=== PATIENT | female | born 1990 | race Two or more races ===

== ENCOUNTER 2021-07-31 19:03 | Emergency (ER) | payer BC, OTHER ==
[~2021-07-31] VITALS: Ht 162.6 cm; Wt 73.9 kg
[~2021-07-31 19:03] MED LIST: QUET50TA PO; [UNRECOGNIZED DRUG - CODE] PO; [UNRECOGNIZED DRUG - OTHER]; [UNRECOGNIZED DRUG - OTHER]
--- NOTE | 2021-07-31 19:45 | NUR ---
CALLED TO TRIAGE BUT NOT IN WAITING ROOM
--- NOTE | 2021-07-31 20:48 | NUR ---
pt bibself c/o vaginal spotting. pt aaox4 breathing evenly and unlabored. Pt states she is 12 weeks and the spotting started today. Pt did see obgyn today. pt attached to monitor and pox. pt given blanket and call light within reach
--- NOTE | 2021-07-31 21:45 | NUR ---
us tech at bed side
--- NOTE | 2021-07-31 22:00 | NUR ---
refused blood draw. aware
--- NOTE | 2021-07-31 22:22 | NUR ---
PA ON THE PHONE W/ DR BELLE, DIRECT[employer]
[2021-07-31 22:34] LABS: BASOPHILS % (AUTO) 0.4 % (0.0-2.0); EOSINOPHILS % (AUTO) 1.1 % (0.0-6.0); HEMATOCRIT 38 % (33-45); HEMOGLOBIN 12.6 g/dL (11.5-14.8); LYMPHOCYTES # (AUTO) 2.8 K/uL (0.8-4.8); LYMPHOCYTES % (AUTO) 32.3 % (20.0-44.0); MEAN CORPUSCULAR HGB CONC 34 g/dl (31.0-36.0); MEAN CORPUSCULAR VOLUME 90 fL (82-100); MONOCYTES # (AUTO) 0.5 K/uL (0.1-1.30); MONOCYTES % (AUTO) 5.3 % (2.0-12.0); NEUTROPHILS # (AUTO) 5.4 K/uL (1.8-8.9); NEUTROPHILS % (AUTO) 60.9 % (43.0-81.0); PLATELET COUNT (AUTO) 268 K/uL (150-450); WHITE BLOOD COUNT (AUTO) 8.8 K/uL (4.3-11.0)
--- NOTE | 2021-07-31 23:11 | NUR ---
PER LAB, PT IS NOT A CANDIDATE FOR [facility]. LUCRECIA AWARE
--- NOTE | 2021-07-31 23:29 | NUR ---
Patient discharged to home in stable condition. Written and verbal after care instructions given. Patient verbalizes understanding of instruction.
[2021-07-31 23:32] VITALS: BP 110/66
== END 2021-07-31 23:32 | disposition home or self-care (01) ==
LOC: ER 19:09
DX: O36.4XX0 Maternal care for intrauterine death, not applicable or unspecified (principal); Z98.890 Other specified postprocedural states; Z3A.09 9 weeks gestation of pregnancy
CPT/HCPCS: 36415; 76805-TC; 84702-TC; 85025-TC

== ENCOUNTER 2021-08-26 22:14 | Emergency (ER) | payer OTHER ==
[~2021-08-26] VITALS: Ht 160 cm; Wt 54.4 kg
--- NOTE | 2021-08-26 23:03 | NUR ---
BIBS C/O RECTAL BLEEDING X1 WEEK WHEN WIPING. CHANGED INTO A GOWN AND PLACED ON A MONITOR ALL VITALS STABLE. MD WAS AT BEDSIDE FOR EVALUATION.
[2021-08-26] MEDS ORDERED: HYDR30CR79 TP (23:14)
[2021-08-26 23:47] VITALS: BP 126/77
--- NOTE | 2021-08-26 23:47 | NUR ---
Patient discharged to home in stable condition. Written and verbal after care instructions given. Patient verbalizes understanding of instruction.
== END 2021-08-26 23:48 | disposition home or self-care (01) ==
LOC: ER 22:14
DX: K64.8 Other hemorrhoids (principal); M25.552 Pain in left hip; Z79.899 Other long term (current) drug therapy
CPT/HCPCS: 73020

== ENCOUNTER 2022-08-01 12:40 | Emergency (ER) | payer OTHER ==
[~2022-08-01] VITALS: Ht 157.5 cm; Wt 75.3 kg
[~2022-08-01 12:40] MED LIST changes: +HYDR30CR79 TP
[2022-08-01 12:51] VITALS: BP 103/63
--- NOTE | 2022-08-01 13:02 | NUR ---
ASSISTED MD AT BEDSIDE DURING EVAL.
[2022-08-01] MEDS ORDERED: methylPREDNISolone SOD SUCC 125 MG/2ML VIAL ONE (13:08)
[2022-08-01] MEDS ORDERED: FAMOTIDINE/PF INJ 20 MG/2 ML VIAL IV ONE ×2 (13:09→13:30)
[2022-08-01] MEDS ORDERED: diphenhydrAMINE HCL 50 MG/ML VIAL ONE (13:09)
[2022-08-01] MEDS ORDERED: methylPREDNISolone SOD SUCC 125 MG/2ML VIAL IV ONE (13:30)
[2022-08-01] MEDS ORDERED: IV NS 0.9% 1,000 ML BAG IV ONE (13:30)
[2022-08-01] MEDS ORDERED: diphenhydrAMINE HCL 50 MG/ML VIAL IV ONE (13:30)
[2022-08-01] MEDS ORDERED: FAMO-131 PO ×2 (14:16→14:33)
[2022-08-01] MEDS ORDERED: PRED20TA PO ×2 (14:16→14:33)
[2022-08-01] MEDS ORDERED: DIPH25CA83 PO ×2 (14:16→14:33)
--- NOTE | 2022-08-01 16:11 | NUR ---
Patient discharged to home in stable condition. Written and verbal after care instructions given. Patient verbalizes understanding of instruction.IV removed. Catheter intact and site benign. Pressure and 4x4 applied to site. No bleeding noted.
== END 2022-08-01 16:11 | disposition home or self-care (01) ==
LOC: ER 12:40
DX: T78.40XA Allergy, unspecified, initial encounter (principal); Z79.899 Other long term (current) drug therapy; X58.XXXA Exposure to other specified factors, initial encounter
CPT/HCPCS: 99284; 96374; 96375; 96361; J1200; J3490; J2930; J7030

== ENCOUNTER 2022-10-15 14:01 | Emergency (ER) | payer OTHER ==
[~2022-10-15] VITALS: Ht 157.5 cm; Wt 68.0 kg
[~2022-10-15 14:01] MED LIST changes: +DIPH25CA83 PO; +FAMO-131 PO; +PRED20TA PO
--- NOTE | 2022-10-15 14:20 | NUR ---
MARLEE RA FROM URGENT CARE, DEVELOPED GENERALIZED RASH/HIVES AFTER EATING. BEANS YESTERDAY, GIVEN BENADRIL PO IN [facility]RGENT [facility]ARE
[2022-10-15] MEDS ORDERED: IV NS 0.9% 2,000 ML IV ONE (15:00)
[2022-10-15] MEDS ORDERED: FAMOTIDINE/PF INJ 20 MG/2 ML VIAL IV ONE ×2 (15:00→15:25)
[2022-10-15] MEDS ORDERED: ONDANSETRON HCL/PF 4 MG/2 ML VIAL IV ONE (15:00)
[2022-10-15] MEDS ORDERED: ONDANSETRON HCL/PF 4 MG/2 ML VIAL ONE (15:25)
[2022-10-15 15:43] LABS: EOSINOPHILS % (AUTO) 0.1 % (0.0-6.0); HEMATOCRIT 44 % (33-45); HEMOGLOBIN 14.5 g/dL (11.5-14.8); LYMPHOCYTES % (AUTO) 7.3 % (20.0-44.0); MEAN CORPUSCULAR HGB CONC 33 g/dl (31.0-36.0); MEAN CORPUSCULAR VOLUME 88 fL (82-100); MONOCYTES # (AUTO) 0.3 K/uL (0.1-1.30); NEUTROPHILS # (AUTO) 12.9 K/uL (1.8-8.9); NEUTROPHILS % (AUTO) 90.6 % (43.0-81.0); PLATELET COUNT (AUTO) 323 K/uL (150-450); RED BLOOD CELL COUNT(AUTO) 5.01 MIL/uL (4.0-5.2); WHITE BLOOD COUNT (AUTO) 14.2 K/uL (4.3-11.0)
[2022-10-15 16:14] LABS: ALBUMIN 3.5 g/dL (3.4-5.0); BILIRUBIN,DIRECT 0.2 mg/dL (0.0-0.2); BILIRUBIN,TOTAL 0.9 mg/dL (0.2-1.0); CALCIUM, SERUM 8.3 mg/dL (8.5-10.1); CREATININE 0.7 mg/dL (0.6-1.3); POTASSIUM 4.2 mmol/L (3.5-5.1)
[2022-10-15] MEDS ORDERED: PRED50TA PO (17:28)
--- NOTE | 2022-10-15 18:00 | NUR ---
IV removed. Catheter intact and site benign. Pressure and 4x4 applied to site. No bleeding noted.
--- NOTE | 2022-10-15 18:11 | NUR ---
Patient discharged to home in stable condition. Written and verbal after care instructions given. Patient verbalizes understanding of instruction.
[2022-10-15 18:14] VITALS: BP 105/52
== END 2022-10-15 18:14 | disposition home or self-care (01) ==
LOC: ER 14:18
DX: T78.40XA Allergy, unspecified, initial encounter (principal); Z79.899 Other long term (current) drug therapy; X58.XXXA Exposure to other specified factors, initial encounter
CPT/HCPCS: 99284; 96374; 96361 ×2; 96375; 85025; 80048; 80076; 36415; 84702; J3490; J2405; J7030 ×2

== ENCOUNTER 2022-10-16 23:57 | Emergency (ER) | payer OTHER ==
[~2022-10-16] VITALS: Ht 162.6 cm; Wt 68.0 kg
[~2022-10-16 23:57] MED LIST changes: +PRED50TA PO
[2022-10-17] MEDS ORDERED: FAMOTIDINE/PF INJ 20 MG/2 ML VIAL IV ONE (00:08)
[2022-10-17] MEDS ORDERED: methylPREDNISolone SOD SUCC 125 MG/2ML VIAL ONE (00:08)
[2022-10-17] MEDS ORDERED: diphenhydrAMINE HCL 50 MG/ML VIAL ONE (00:08)
--- NOTE | 2022-10-17 00:10 | NUR ---
ROB C/O ALLERGIC REACTION. TOOK BENADRYL [id number] HOTEL BREAKFAST ATTENDANT. - RESPIRATORY DISTRESS. PATIENT IS AAOX4, AMBULATORY, ABLE TO MAKE NEEDS KNOWN. PATIENT IS SLEEPY DUE TO MEDS TAKEN PRIOR TO HOTEL BREAKFAST ATTENDANT. + URTICARIAL RASHES ALL OVER BODY. ATTACHED TO MONITOR. VITALS CHECKED.
[2022-10-17] MEDS ORDERED: ONDANSETRON HCL/PF 4 MG/2 ML VIAL ONE (00:15)
[2022-10-17] MEDS: FAMOTIDINE/PF INJ 20 MG/2 ML VIAL IV ONE (00:18)
[2022-10-17] MEDS: IV NS 0.9% 1,000 ML BAG IV ONE (00:18)
[2022-10-17] MEDS: ONDANSETRON HCL/PF 4 MG/2 ML VIAL IV ONE (00:18)
[2022-10-17] MEDS: diphenhydrAMINE HCL 50 MG/ML VIAL IV ONE (00:18)
[2022-10-17] MEDS: methylPREDNISolone SOD SUCC 125 MG/2ML VIAL IV ONE (00:18)
[2022-10-17] MEDS ORDERED: EPINEPHRINE (1:1000) 1 MG/ML AMPUL ONE (01:44)
[2022-10-17 01:55] VITALS: BP 108/71
[2022-10-17] MEDS: EPINEPHRINE (1:1000) MDV 30 MG/30ML VIAL SUBCUT ONE (01:55)
[2022-10-17] MEDS ORDERED: PRED50TA PO (02:51)
[2022-10-17] MEDS ORDERED: EPIN0.3P3 IM (02:51)
--- NOTE | 2022-10-17 03:36 | NUR ---
IV CANNULA REMOVED. CALLED TO [facility] PT. HE WILL BE HERE IN 15 MINS
--- NOTE | 2022-10-17 03:46 | NUR ---
Patient discharged to home in stable condition. Written and verbal after care instructions given. Patient verbalizes understanding of instruction.
== END 2022-10-17 04:11 | disposition home or self-care (01) ==
LOC: ER 10-17
DX: L50.0 Allergic urticaria (principal); T45.0X5A Adverse effect of antiallergic and antiemetic drugs, initial encounter; Y92.89 Other specified places as the place of occurrence of the external cause
CPT/HCPCS: 99284; 96374; 96375 ×2; 96361; 96372; J1200; J0171 ×2; J3490; J2930; J2405

== ENCOUNTER 2023-02-13 23:40 | Emergency (ER) | payer OTHER ==
[~2023-02-13] VITALS: Ht 157.5 cm; Wt 71.7 kg
[~2023-02-13 23:40] MED LIST changes: +EPIN0.3P3 IM
--- NOTE | 2023-02-14 00:19 | NUR ---
BIBS. MID STERNAL CP "FEELS LIKE SOMETHING GOING UP THE THROAT" STARTED LAST NIGHT @2100. AXO4 AMBULATORY AND VERBAL.
[2023-02-14 00:55] LABS: BASOPHILS % (AUTO) 0.5 % (0.0-2.0); EOSINOPHILS % (AUTO) 1.3 % (0.0-6.0); HEMATOCRIT 35 % (33-45); HEMOGLOBIN 11.7 g/dL (11.5-14.8); LYMPHOCYTES % (AUTO) 35.3 % (20.0-44.0); MEAN CORPUSCULAR HGB CONC 34 g/dl (31.0-36.0); MEAN CORPUSCULAR VOLUME 86 fL (82-100); MONOCYTES # (AUTO) 0.6 K/uL (0.1-1.30); MONOCYTES % (AUTO) 6.6 % (2.0-12.0); NEUTROPHILS # (AUTO) 4.8 K/uL (1.8-8.9); NEUTROPHILS % (AUTO) 56.3 % (43.0-81.0); PLATELET COUNT (AUTO) 258 K/uL (150-450); RED BLOOD CELL COUNT(AUTO) 4.07 MIL/uL (4.0-5.2); WHITE BLOOD COUNT (AUTO) 8.4 K/uL (4.3-11.0)
[2023-02-14 01:08] LABS: D-DIMER 0.19 mg/L(FEU (0.17-0.50)
[2023-02-14 01:13] LABS: ALANINE AMINOTRANSFERASE 17 U/L (12-78); ALBUMIN 3.6 g/dL (3.4-5.0); ALKALINE PHOSPHATASE 66 U/L (46-116); ASPARTATE AMINOTRANSFERASE 10 U/L (15-37); BILIRUBIN,TOTAL 0.2 mg/dL (0.2-1.0); CALCIUM, SERUM 8.9 mg/dL (8.5-10.1); CARBON DIOXIDE 26 mmol/L (21-32); CHLORIDE 109 mmol/L (98-107); CREATININE 0.8 mg/dL (0.6-1.3); GLUCOSE 97 mg/dL (74-106); POTASSIUM 3.5 mmol/L (3.5-5.1); SODIUM SERUM 143 mmol/L (136-145); TOTAL PROTEIN, SERUM 7.1 g/dL (6.4-8.2); UREA NITROGEN, BLOOD 19 mg/dL (7-18)
--- NOTE | 2023-02-14 02:06 | NUR ---
CRIB PAD MAKER AT BEDSIDE FOR REPEAT TROP
--- NOTE | 2023-02-14 03:17 | NUR ---
Patient discharged to home in stable condition. Written and verbal after care instructions given. Patient verbalizes understanding of instruction.
[2023-02-14 03:18] VITALS: BP 109/56
== END 2023-02-14 03:18 | disposition home or self-care (01) ==
LOC: ER 23:42
DX: R07.89 Other chest pain (principal); Z98.890 Other specified postprocedural states; Z79.899 Other long term (current) drug therapy
CPT/HCPCS: 36415; 71045-TC; 80048-TC; 80076-TC; 84484-TC; 84703-TC; 85025-TC; 85378-TC; 85730-TC

== ENCOUNTER 2023-03-18 23:26 | Emergency (ER) | payer OTHER ==
[~2023-03-18] VITALS: Ht 162.6 cm; Wt 63.5 kg
--- NOTE | 2023-03-18 23:50 | NUR ---
BIBS C/O "NOT HAVING MORNING SICKNESS ANYMORE" 5 WEEKS PREG, A/O X 4, PLACED COMFORTABLY ON BED. V/S TAKEN AND RECORDED
--- NOTE | 2023-03-19 01:35 | NUR ---
URINE SPECIMEN COLLECTED AND SENT TO LAB
--- NOTE | 2023-03-19 02:40 | NUR ---
US TECH AT BED SIDE
[2023-03-19 03:17] LABS: BILIRUBIN,URINE NEGATIVE (NEGATIVE); COLOR,URINE YELLOW (YELLOW); LEUKOCYTE ESTERASE ,URINE NEGATIVE (NEGATIVE); NITRITE, URINE NEGATIVE (NEGATIVE); PROTEIN,URINE NEGATIVE (NEGATIVE); UGLUCOSE NEGATIVE (NEGATIVE); UROBILINOGEN,URINE 0.2 EU/dL (0.2)
--- NOTE | 2023-03-19 03:21 | NUR ---
Patient discharged to home in stable condition. Ambulatory. Written and verbal after care instructions given. Patient verbalizes understanding of instruction.
[2023-03-19 03:22] VITALS: BP 100/70
== END 2023-03-19 03:23 | disposition home or self-care (01) ==
LOC: ER 23:30
DX: O26.891 Other specified pregnancy related conditions, first trimester (principal); Z71.1 Person with feared health complaint in whom no diagnosis is made; Z98.890 Other specified postprocedural states; Z79.899 Other long term (current) drug therapy
CPT/HCPCS: 36415; 76805-TC; 84702-TC